=== PATIENT | male | born 1985 | race Two or more races ===

== ENCOUNTER 2021-01-28 15:27 | Emergency (ER) | payer MEDICAID ==
[~2021-01-28] VITALS: Ht 175.3 cm; Wt 164.7 kg
[2021-01-28 16:02] VITALS: BP 135/82
--- NOTE | 2021-01-28 16:16 | NUR ---
THE PATIENT BIBS WITH C/O GENERALIZED BODY PAIN X 1 MONTH. RATES PAIN /10. DENIES TRAUMA. WILL CONTINUE TO MONITOR THE PATIENT.
--- NOTE | 2021-01-28 17:00 | NUR ---
RADIOLOGY AT BEDSIDE FOR CHEST XRAY.
[2021-01-28 17:23] LABS: BASOPHILS # (AUTO) 0.1 K/uL (0.0-0.2); BASOPHILS % (AUTO) 0.6 % (0.0-2.0); EOSINOPHILS % (AUTO) 1.3 % (0.0-6.0); HEMATOCRIT 41 % (39-51); HEMOGLOBIN 13.6 g/dL (13.5-17.5); LYMPHOCYTES # (AUTO) 2.6 K/uL (0.8-4.8); LYMPHOCYTES % (AUTO) 31.8 % (20.0-44.0); MEAN CORPUSCULAR HGB CONC 33 g/dl (31.0-36.0); MEAN CORPUSCULAR VOLUME 80 fL (80-96); MONOCYTES # (AUTO) 0.6 K/uL (0.1-1.30); MONOCYTES % (AUTO) 7.2 % (2.0-12.0); NEUTROPHILS # (AUTO) 4.8 K/uL (1.8-8.9); NEUTROPHILS % (AUTO) 59.1 % (43.0-81.0); PLATELET COUNT (AUTO) 260 K/uL (150-450); RED BLOOD CELL COUNT(AUTO) 5.15 MIL/uL (4.5-6.0); WHITE BLOOD COUNT (AUTO) 8.1 K/uL (4.3-11.0)
[2021-01-28 17:34] LABS: CALCIUM, SERUM 8.7 mg/dL (8.5-10.1); CARBON DIOXIDE 29 mmol/L (21-32); CHLORIDE 99 mmol/L (98-107); CREATININE 0.9 mg/dL (0.6-1.3); GLUCOSE 83 mg/dL (74-106); POTASSIUM 3.5 mmol/L (3.5-5.1); SODIUM SERUM 134 mmol/L (136-145); UREA NITROGEN, BLOOD 4 mg/dL (7-18)
[2021-01-28 17:48] LABS: ALANINE AMINOTRANSFERASE 74 U/L (12-78); ALBUMIN 3.9 g/dL (3.4-5.0); ALKALINE PHOSPHATASE 74 U/L (46-116); ASPARTATE AMINOTRANSFERASE 79 U/L (15-37); BILIRUBIN,DIRECT 0.2 mg/dL (0.0-0.2); BILIRUBIN,TOTAL 0.9 mg/dL (0.2-1.0); TOTAL PROTEIN, SERUM 8.3 g/dL (6.4-8.2)
--- NOTE | 2021-01-28 18:01 | NUR ---
Note miguel in EDM - 01/28/21 at 1826 by AI THE PATIENT BIBS REQUESTING TO TAKE OUT CAST TO LLE. STATES IT GOT WET. DENIES PAIN. NO S/S POOR CIRCULATION NOTED. WILL CONTINUE TO MONITOR THE PATIENT.
--- NOTE | 2021-01-28 18:41 | NUR ---
COVID SWAB DONE AND SENT TO THE LAB
--- NOTE | 2021-01-28 19:14 | NUR ---
REPORT GIVEN TO NURSE ZAHRAA FOR JENIFER
== END 2021-01-28 19:25 | disposition left against medical advice (07) ==
LOC: ER 15:37
DX: R60.0 Localized edema (principal); E66.01 Morbid (severe) obesity due to excess calories; Z68.43 Body mass index [BMI] 50.0-59.9, adult; R94.31 Abnormal electrocardiogram [ECG] [EKG]; R91.8 Other nonspecific abnormal finding of lung field; Z20.822 Contact with and (suspected) exposure to COVID-19; F20.9 Schizophrenia, unspecified; I50.9 Heart failure, unspecified
CPT/HCPCS: 36415; 71045; 80048; 80076; 83880; 84484; 85025; 87426; 93005; 99285; C9803

== ENCOUNTER 2021-03-29 17:12 | Emergency (ER) | payer MEDICAID ==
[~2021-03-29] VITALS: Ht 185.4 cm; Wt 96.2 kg
[2021-03-29 17:17] VITALS: BP 146/90
--- NOTE | 2021-03-29 19:21 | NUR ---
CALLED FROM WAITING ROOM TO BE PLACED IN A ROOM BUT PT IS NOT IN WAITING ROOM
--- NOTE | 2021-03-29 19:45 | NUR ---
STILL NO ANSWER WHEN CALLED TO BE PLACED IN A ROOM
--- NOTE | 2021-03-29 20:00 | NUR ---
PT IS NO LONGER IN THE WAITING ROOM WHEN CALLED
== END 2021-03-29 21:24 | disposition left against medical advice (07) ==
LOC: ER 17:18
DX: Z53.21 Procedure and treatment not carried out due to patient leaving prior to being seen by health care provider (principal); M54.9 Dorsalgia, unspecified; F20.9 Schizophrenia, unspecified